=== PATIENT | male | born 1990 | race Hispanic/Latino ===

== ENCOUNTER 2021-10-26 19:13 | Emergency (ER) | payer SELFPAY ==
[~2021-10-26] VITALS: Ht 182.9 cm; Wt 121.6 kg
[2021-10-26] MEDS ORDERED: FLUORESCEIN SODIUM 1 STRIP STRIP ONE (19:48)
[2021-10-26] MEDS ORDERED: TETRACAINE HCL 0.5% 4 ML OPHTH SOLN ONE (19:49)
[2021-10-26] MEDS ORDERED: TETANUS/DIPHTHERIA TOXOID [ADULT] 0.5 ML VIAL IM ONE (20:00)
[2021-10-26] MEDS ORDERED: FLUORESCEIN SODIUM 1 STRIP STRIP OP SCH (20:00)
[2021-10-26 20:45] VITALS: BP 140/97
== END 2021-10-26 20:43 | disposition home or self-care (01) ==
LOC: EDH 19:13
DX: T20.20XA Burn of second degree of head, face, and neck, unspecified site, initial encounter (principal); T23.272A Burn of second degree of left wrist, initial encounter; T31.0 Burns involving less than 10% of body surface; X16.XXXA Contact with hot heating appliances, radiators and pipes, initial encounter; Y93.89 Activity, other specified; Y92.89 Other specified places as the place of occurrence of the external cause; Y99.8 Other external cause status
CPT/HCPCS: 90471; 90714